=== PATIENT | male | born 1965 | race Caucasian/White ===

== ENCOUNTER 2021-10-25 20:30 | Outpatient (REF) | payer OTHER, SELFPAY ==
[2021-10-25 21:22] LABS: SARS PCR* Negative SARS-CoV-2 (Negative)
== END 2021-10-25 20:31 | disposition home or self-care (01) ==
LOC: NPINS 20:30
PROVIDERS: PCP Family Medicine; Visit Provider Podiatrist
DX: Z20.822 Contact with and (suspected) exposure to COVID-19 (principal)
CPT/HCPCS: 87635

== ENCOUNTER 2021-10-28 09:54 | Day surgery (SDC) | payer OTHER, SELFPAY ==
[2021-10-28 10:30] VITALS: BMI 49.1
[2021-10-28 10:36] VITALS: BP 113/75; PULSE 52; RESP 16; TEMP 36.7; O2SAT 97
[2021-10-28] MEDS: LACTATED RINGERS 1000 ML 1,000 ML 100 ML IV ×2 (12:45→16:17)
[2021-10-28] MEDS: fentaNYL 100 MCG/2 ML inj IVP (12:45)
[2021-10-28] MEDS: SODIUM CHLORIDE 0.9 % (FLUSH) 10 ML SYRINGE IVF (12:45)
[2021-10-28] MEDS: MIDAZOLAM HCL 1 MG/ML inj IVP (12:46)
--- NOTE | 2021-10-28 12:58 | P.NB_ITS ---
Nerve Block Nerve Block Time Seen by Provider: 12:20 Date Seen: 10/28/21 Type of block requested by surgeon for post-operative analgesia: adductor canal Side: right Time out performed: Yes Verification of patient name: Yes Verification of date of : Yes Site marking: site marked Name of person performing procedure: Jw Continuous monitoring Was continuous monitoring of O2 sat, B/P, director of cardiac cath lab, recorded every 15 minutes?: Yes Procedure Checklist: sterile prep, needles and gloves Ultrasound guided. Images saved: Yes Medications given in 5ml increments after negative aspiration: Ropivicaine %: 0.5 mL: 20 Needle gauge: 22 Patient tolerated procedure well: Yes Additional comments: Needle noted adjacent to nerve Block Charges Block Charge (with Pro Fee): Femoral Nerve Use of Ultrasound Machine for Block: Yes- US Guidance/pain block
--- NOTE | 2021-10-28 12:58 | P.NB_ITS ---
Nerve Block Nerve Block Time Seen by Provider: 12:20 Date Seen: 10/28/21 Type of block requested by surgeon for post-operative analgesia: popliteal Side: right Time out performed: Yes Verification of patient name: Yes Verification of date of : Yes Site marking: site marked Name of person performing procedure: Jw Continuous monitoring Was continuous monitoring of O2 sat, B/P, pvc monitor, recorded every 15 minutes?: Yes Procedure Checklist: sterile prep, needles and gloves Ultrasound guided. Images saved: Yes Medications given in 5ml increments after negative aspiration: Ropivicaine %: 0.5 mL: 20 Needle gauge: 20 Patient tolerated procedure well: Yes Additional comments: Needle noted adjacent to nerve Block Charges Block Charge (with Pro Fee): Sciatic Nerve Use of Ultrasound Machine for Block: Yes- US Guidance/pain block
--- NOTE | 2021-10-28 13:01 | SUR.PREOP ---
TIME?OUT:?1244 PT/RN/MDA?VERIFICATION?OF?SURGICAL?SITE,?PROCEDURE,?AND?CONSENT OBTAINED?PRIOR?TO?INVASIVE?PROCEDURE. all in agreement.
--- NOTE | 2021-10-28 14:29 | CRLHL7_ITS ---
For Patients: As a result of the Cures Act, medical imaging exams and procedure reports are released immediately into your electronic medical record. You may view this report before your referring provider. If you have questions, please contact your health care provider. Indication: SURGICAL ASSISTANCE WITH TENDON REPAIR Technique: Two fluoroscopic images of the right ankle. Fluoroscopic time 76.9 seconds. IMPRESSION: Fluoroscopic guidance for subtalar fusion. Dictated by Steven Mirza MD @ 10/29/2021 9:19:11 AM (Electronically Signed)
[2021-10-28 16:19] VITALS: BP 125/80; PULSE 53; RESP 16; TEMP 36.7; O2SAT 98
--- NOTE | 2021-10-28 16:24 | P.GSOP_ITS ---
Operative Note Date of procedure: 10/28/21 Type of Procedure: 1. Subtalar joint fusion right 2. Lateral Ankle stabilization right Procedure Description: After discussing the risks and benefits of the procedure, the patient signed informed consent.? The operative site was marked and the patient was brought to the operating room and placed on the operating table in supine position.? Preoperative popliteal adductor block been performed by Anesthesia. Care was taken to pad the patient's pressure points.?? The patient was then [intubated/given sedation] by anesthesia.?? The operative site was then prepped and draped in the usual sterile fashion.? A time-out was then performed. ? Linear incision was made starting proximal to lateral malleolus and coursing to the 4th metatarsal base. Incision was carried down through skin subcutaneous tissues. This large lipoma overlying the sinus tarsi lateral ankle was excised utilizing blunt dissection. Bleeding vessels were cauterized. Next the sinus tarsi fat plug was excised. The peroneal tendon sheath was carefully opened with a tenotomy scissors and the tendons explored. They were found to be in excellent health. Subtalar joint was identified and large effusion drained. Interosseous ligaments were significantly atrophied. One large Steinmann pin was placed in the lateral talus and 1 was placed in the calcaneus and joint blacktop spreader placed and the joint distracted. There was absolutely no cartilage wit hin the joint and in the posterior facet or middle facet. Combination of a curette, resurfacing bur and osteotomes were used to debride the joint down to healthy bleeding subchondral bone. We then made multiple drill holes throughout the fusion site and then fish-scaled the joint with an osteotome. We thoroughly irrigated with normal sterile saline. Augment bone graft was mixed with bone putty and placed in 3 of the defects left by cystic areas. Next a guide pin was placed into the plantar posterior calcaneus and driven across the fusion site into the talus. Lateral and anterior ankle images confirmed excellent position. Second guidepin was placed plantar and parallel to the 1st angling slightly more medial. 6.5 mm cannulated headless screws were then placed using standard technique. Excellent compression noted across the fusion site. Screw position was checked with C-arm and found to be optimal. There were a couple small gaps anteriorly at the fusion site and these were packed with bone graft. There is still some grinding to the anterior lateral ankle joint. Blunt dissection into the ankle joint revealed spurred area off the talus and fibula. These were removed with a rongeur. Once this was done normal range of motion without grinding was noted. Guidepin was placed in the lateral calcaneus and a 4.25 mm SwiveLock anchor with FiberTape placed. Guide pin and drill hole was then made in the distal fibula and tapped. With the foot held in neutral position the FiberTape was tensioned and the 3.5 mm SwiveLock anchor was placed in the fibula recreating the channing caneal fibular ligament. Anterior talofibular ligament was repaired primarily with 2-0 Vicryl. Subcutaneous tissues reapproximated with 3-0 Vicryl and skin closed with 4-0 Prolene. Posterior incision on the heel was closed with 3-0 nylon oral. Jump start topical dressing was applied to the incisions. Sterile dressings were then applied. Due to his size I placed him in a cam boot for additional protection versus a splint he could easily break stepping down. ? The patient was then woken and transported to the recovery area in stable condition. ? The patient tolerated the procedure well. He will be discharged per Anesthesia. Written and verbal postop instructions given. He is given oxycodone and Vistaril for pain. He has remained nonweightbearing to right lower extremity. His follow-up appointment in 2 days. Implants: Arthrex 6.5 mm headless screws x2, Arthrex internal brace x1 Anesthesia: MAC and regional Surgeon: Jonny Ramírez DPM Estimated blood loss (mL): 10 Condition: stable Disposition: same day
--- NOTE | 2021-10-28 16:25 | W.ANESCHARGE ---
Anesthesia Charges Start Date/Time Anesthesia Start Date: 10/28/21 Anesthesia Start Time: 13:37 Stop Date/Time Anesthesia Stop Date: 10/28/21 Anesthesia Stop Time: 16:22 Summary Emergency: No
--- NOTE | 2021-10-28 16:26 | W.ANESCHARGE ---
Anesthesia Charges Start Date/Time Anesthesia Start Date: 10/28/21 Anesthesia Start Time: 13:37 Stop Date/Time Anesthesia Stop Date: 10/28/21 Anesthesia Stop Time: 16:22 Summary Emergency: No
[2021-10-28 16:33] VITALS: BP 113/62; PULSE 50; RESP 16; O2SAT 96
[2021-10-28] MEDS: OxyCODONE/APAP 5-325 TABLET PO (16:37)
[2021-10-28 16:45] VITALS: BP 124/97; PULSE 52; RESP 16; O2SAT 98
--- NOTE | 2021-10-28 16:51 | SUR.PHASEII ---
VORB for home use: Aspirin 81mg (2tabs) daily to start tomorrow, Sunday 10/29. Take for [address] Ramírez. Maura Cisneros RN. Put on patient's home instruction sheet.
== END 2021-10-28 17:12 | disposition home or self-care (01) ==
PROVIDERS: PCP Family Medicine; Visit Provider Podiatrist
PROC: (CPT 27675; principal; 2021-10-28 11:15)
PROC: (CPT 28725; 2021-10-28 11:15)
DX: M19.071 Primary osteoarthritis, right ankle and foot (principal); M25.571 Pain in right ankle and joints of right foot; M67.88 Other specified disorders of synovium and tendon, other site
CPT/HCPCS: 28725; 27659; 27695; 1480; 64445; 64447; 73620; 76000; 76942; 97116; 97161; A4580; A9270; C1713; J2250; J2405; J2704; J2795; J3010; J7120

== ENCOUNTER 2021-11-02 15:51 | Inpatient (IN) | payer OTHER, SELFPAY ==
[2021-11-02 16:10] VITALS: BP 114/61; PULSE 92; RESP 24; TEMP 39.3; O2SAT 97; BMI 54.0
--- NOTE | 2021-11-02 16:23 | CRLHL7_ITS ---
For Patients: As a result of the Cures Act, medical imaging exams and procedure reports are released immediately into your electronic medical record. You may view this report before your referring provider. If you have questions, please contact your health care provider. Indication: Postop infection. Technique: Three views of the right ankle. Comparison: Fluoroscopic images of the right foot dated 10/28/2021, right ankle radiographs dated 11/01/2020. Findings/Impression: Two talocalcaneal screws are present, no definite evidence of hardware loosening. Significant circumferential soft tissue swelling about the ankle, with moderate-sized ankle joint effusion. Dictated by Oscar Pedro MD @ 11/02/2021 6:04:17 PM (Electronically Signed)
[2021-11-02] MEDS: MORPHINE 4 MG/ML INJ IVP (17:15)
[2021-11-02] MEDS: ONDANSETRON 2 MG/ML inj 4 MG IVP ×2 (17:15→20:44)
[2021-11-02] MEDS: 0.9 % SODIUM CHLORIDE 1000 ml 1,000 ML IV ×2 (17:16→18:40)
[2021-11-02 17:17] LABS: Basophils Absolute Auto 0.04 K/uL (0.00-0.30); Basophils Percent Auto 0.5 % (0.0-3.0); Eosinophils Absolute Auto 0.17 K/uL (0.00-0.50); Eosinophils Percent Auto 2.2 % (0.0-7.0); Hematocrit 36.9 % (37.0-53.0); Hemoglobin* 12.2 gm/dL (13.5-17.5); Immature Granulocytes Abs Auto 0.01 K/uL (0.00-0.30); Mean Corpuscular HGB Conc 33 gm/dL (32-36); Mean Corpuscular Hemoglobin 29 pg (26-34); Mean Corpuscular Volume 87 fL (80-100); Monocytes Percent Auto 10.4 % (0.0-11.0); Neutrophils Percent Auto 79.8 % (42.0-72.0); Platelet Count* 144 K/uL (140-440); RDW Coefficient of Variation % 13.3 % (11.5-15.5); Red Blood Count 4.26 m/uL (4.30-5.90); White Blood Count* 7.59 K/uL (4.50-11.00)
[2021-11-02 17:24] LABS: Slide Review Reflex No
[2021-11-02 17:30] LABS: Chloride* 89 mmol/L (96-114); Sodium* 129 mmol/L (135-149)
[2021-11-02 17:31] LABS: Potassium* 4.4 mmol/L (3.6-5.1)
[2021-11-02 17:33] LABS: Albumin* 3.7 g/dL (3.3-5.0); Carbon Dioxide* 32 mmol/L (20-32); Estimated Glomerular Filt Rate 89 ml/min
[2021-11-02 17:34] LABS: Blood Urea Nitrogen* 23 mg/dL (7-30); Calcium* 8.3 mg/dL (8.4-10.6); Glucose* 105 mg/dL (60-115)
--- NOTE | 2021-11-02 17:35 | ED.GENADULT ---
HPI - General Adult General Date Seen: 11/02/21 Chief complaint: Fever Stated complaint: Ankle Infection Time Seen by Provider: 11/02/21 16:04 Source: patient and family History of Present Illness HPI narrative: Patient is a 56-year-old male who underwent ankle fusion surgery with Dr. Ramírez on October 28. He looked well at his postop visit the next day, but over the past couple of days he started to feel worse. He has had increasing pain, has noted some redness, and today has had chills as well as a fever up to 103 at home. He has not had chest pain or shortness of breath. He does have pain in his shoulders and in his back, which sounds like it may be more chronic. He does have nerve stimulators in 2 places in his back and is on chronic oxycodone for back pain. He denies urinary symptoms in terms of dysuria or frequency or urgency, but his again other does say that his urine has been concentrated and he has been having decreased urine output. He was evaluated by Dr. Ramírez today and was sent here for IV antibiotics. He has had significant nausea but no vomiting. Has not had diarrhea. Describes the pain in his right ankle as severe, also describes the pain in his shoulders and back as severe. Pain is constant. Nonradiating. Related Data Home Medications Medication Instructions Recorded Confirmed albuterol 90 mcg/actuation aerosol mcg inhalation PRN 10/25/21 inhaler albuterol sulfate 2.5 mg/3 mL 1.25 mg inhalation Q4H PRN 10/25/21 10/25/21 (0.083 %) solution for nebulization allopurinol 300 mg tablet 300 mg PO DAILY 10/25/21 10/28/21 amlodipine 10 mg tablet 10 mg PO DAILY 10/25/21 10/28/21 buprenorphine 5 mcg/hour weekly 1 patch transdermal Q7D 10/25/21 10/25/21 transdermal patch (Butrans) buspirone 5 mg tablet 5 mg PO BID 10/25/21 10/25/21 diclofenac sodium 75 mg 75 mg PO BID 10/25/21 10/28/21 tablet,delayed release duloxetine 60 mg capsule,delayed 120 mg PO DAILY 10/25/21 10/28/21 release (Cymbalta) etanercept 50 mg/mL (1 mL) 50 mg subcut QWEEK 10/25/21 10/25/21 subcutaneous pen injector (Enbrel SureClick) folic acid 1 mg tablet 1 mg PO DAILY 10/25/21 10/28/21 gabapentin 100 mg capsule mg TID 10/25/21 hydrocortisone 1 % topical cream 1 applic topical BID PRN 10/25/21 10/25/21 (Ala-Giacomo) hydroxyzine pamoate 25 mg capsule 25 - 50 mg PO HS 10/25/21 10/25/21 ipratropium 0.5 mg-albuterol 3 mg 3 ml inhalation Q6H PRN 10/25/21 10/25/21 (2.5 mg base)/3 mL nebulization soln lisinopril 20 mg tablet mg DAILY 10/25/21 lisinopril 20 tab DAILY 10/25/21 mg-hydrochlorothiazide 25 mg tablet methotrexate sodium 2.5 mg tablet mg 10/25/21 metoprolol succinate 50 mg 25 mg PO DAILY 10/25/21 10/28/21 tablet,extended release 24 hr montelukast 10 mg tablet 10 mg PO DAILY 10/25/21 10/28/21 (Singulair) ondansetron HCl 4 mg tablet 4 mg PO Q8H PRN 10/25/21 10/25/21 Allergies Allergy/AdvReac Type Severity Reaction Status Date / Time Penicillin Allergy Mild Rash Uncoded 10/24/21 15:34 Review of Systems Status of ROS: Reports: 10 or more systems reviewed and unremarkable except as noted in History and below [facility] Medical History Asthma Depression Hypertension Mild asthma with acute exacerbation Morbid obesity SIDDHARTH (obstructive sleep apnea) Osteoarthritis Rheumatoid arthritis Surgical History History of vasectomy S/P insertion of spinal cord stimulator S/P right knee arthroscopy Social History Smoking Status: Never smoker How often do you have a drink containing alcohol: 2-3 times a week How many standard drinks containing alcohol do you have on a typical day: 1 or 2 AUDIT-C Alcohol total score: 3 Non-prescribed substance use: denies use Caffeine: Yes (soda) Exam Narrative: Exam Narrative: Vital signs as noted the low In general, an alert, fatigued looking male. Significantly overweight. Head: Normocephalic, atraumatic. Eyes: Pupils are equal reactive. Extraocular movements are full. Conjunctivae are normal. ENT: Mucous membranes are slightly dry. Neck: Supple without lymphadenopathy. Heart: Regular rate and rhythm. No murmur or rub. Lungs: Clear bilaterally. No increased work of breathing, crackles or wheezes. No CVA tenderness. Abdomen: Soft and nontender. Exam limited by body habitus. Extremities: Left lower extremity unremarkable. No significant edema, no calf tenderness. On the right, surgical site is significantly erythematous, scant purulent drainage is noted on the 4 x 4 which I removed. I sent this for wound culture. There is no erythema extending up the calf. There is no significant edema. No warmth. He does have some erythema noted laterally on the right upper extremity of uncertain significance. There is no associated rash. Upper extremity pulses are intact. Neurologic: Patient is alert and oriented to person and place. Speech is fluent. Face is symmetric. Moves all extremities equally. Affect: Normal. Skin: Warm and dry. Well perfused. Const: Vital Signs, click to edit/add: Vital Signs - 24 hr 11/02/21 16:10 11/02/21 18:00 Temperature 102.8 F H Pulse Rate [Pulse Oximeter] 92 94 Respiratory Rate 24 14 Blood Pressure [Le ft Upper Arm] 114/61 105/55 L Pulse Oximetry 97 95 Oxygen Delivery Me thod Room Air Documenting provider has reviewed patient's vital signs: yes Course Course Hospital Course: An IV is established here, patient is given morphine as well as Zofran and a L of normal saline. He is febrile here, but not tachycardic or hypotensive. I am awaiting other labs before assessing choice of antibiotic. He does note a penicillin allergy which he says gave him a red square on his abdomen. Patient's labs are notable for a normal white blood cell count of 7.59. Hemoglobin is 12.2. Diff shows a slight left shift with 79.8% neutrophils. Platelet count is normal. Sodium is a little low at 129. Potassium is normal. Enriquez electrolytes unremarkable. Creatinine is normal. LFTs notable for an elevated bilirubin of 2.7, direct of 1.0. AST is elevated at 53, ALT of 45. Alk-phos is elevated at 263. Significance of LFT findings is unknown at this time. Patient complains of nausea but does not have other abdominal complaints, does not have abdominal tenderness. In the setting of clear cellulitis, I do not think his fever is related to a diagnosis such as cholecystitis or cholangitis. CRP is elevated 27.7, but lactate is normal. I did x-rays of the right ankle which by my review show postoperative hardware, joint effusion. Final radiology report is similar. I did touch base with Dr. Ramírez, who requested admission for IV antibiotics, as he feels he may need to take him back to the OR for a washout. Patient does not at this time have criteria to suggest sepsis, he has not been tachycardic or hypotensive, white blood cell count and lactate are normal. However, he did have a little bit of purulent drainage, he does take methotrexate for his rheumatoid arthritis. He does meet criteria for MRSA coverage. I have given him vancomycin as well as cefepime 2 g. Wound culture and blood cultures are pending. I spoke with the hospitalist about admission for further IV antibiotics. Reevaluation(s) Reevaluation #1: Patient is feeling reasonably well, request additional medication for pain. Have ordered an additional 4 mg of morphine as well as an additional L of fluid. He is comfortable with admission. No further questions. Vital Signs Vital signs: Initial Vital Signs Temperature 102.8 F H 11/02/21 16:10 Temperature Source Oral 11/02/21 16:10 Pulse Rate 92 11/02/21 16:10 Respiratory Rate 24 11/02/21 16:10 Blood Pressure 114/61 11/02/21 16:10 Blood Pressure Mean 78 11/02/21 16:10 Blood Pressure Position Supine 11/02/21 16:10 Pulse Oximetry 97 11/02/21 16:10 Oxygen Delivery Method 11/02/21 16:10 Vital Signs Temperature 102.8 F H 11/02/21 16:10 Pulse Rate 92 11/02/21 16:10 Respiratory Rate 24 11/02/21 16:10 Blood Pressure 114/61 11/02/21 16:10 Pulse Oximetry 97 11/02/21 16:10 Oxygen Delivery Method 11/02/21 16:10 Temperature 102.8 F H 11/02/21 16:10 Pulse Rate 94 11/02/21 18:00 Respiratory Rate 14 11/02/21 18:00 Blood Pressure 105/55 L 11/02/21 18:00 Pulse Oximetry 95 11/02/21 18:00 Oxygen Delivery Method 11/02/21 16:10 Medical Decision Making Lab Data Labs: Lab Results 11/02/21 11/02/21 11/02/21 Range/Units 14:30 16:59 16:59 WBC 7.59 (4.50-11.00) K/uL RBC 4.26 L (4.30-5.90) m/uL Hgb 12.2 L (13.5-17.5) gm/dL Hct 36.9 L (37.0-53.0) % MCV 87 (80-100) fL MCH 29 (26-34) pg MCHC 33 (32-36) gm/dL RDW Coeff of Soniya 13.3 (11.5-15.5) % Plt Count 144 (140-440) K/uL Neut % (Auto) 79.8 H (42.0-72.0) % Lymph % (Auto) 7.0 L (20-44) % [place] % (Auto) 10.4 (0.0-11.0) % Eos % (Auto) 2.2 (0.0-7.0) % Baso % (Auto) 0.5 (0.0-3.0) % Neut # (Auto) 6.10 (1.7-7.0) K/uL Lymph # (Auto) 0.50 L (0.90-2.90) K/uL [place] # (Auto) 0.80 (0.00-0.90) K/UL Eos # (Auto) 0.17 (0.00-0.50) K/uL Baso # (Auto) 0.04 (0.00-0.30) K/uL Abs Immat Gran (auto) 0.01 (0.00-0.30) K/uL Sodium 129 L (135-149) mmol/L Potassium 4.4 (3.6-5.1) mmol/L Chloride 89 L (96-114) mmol/L Carbon Dioxide 32 (20-32) mmol/L BUN 23 (7-30) mg/dL Creatinine 1.0 (0.5-1.5) mg/dL Estimated Creat Clear 81.70 Estimated GFR 89 ml/min Glucose 105 (60-115) mg/dL Lactate (0.5-1.9) mmol/L Calcium 8.3 L (8.4-10.6) mg/dL Total Bilirubin (0.1-1.5) mg/dL Direct Bilirubin (0.0-0.5) mg/dL AST (12-35) U/L ALT (4-50) U/L Alkaline Phosphatase (40-150) U/L C-Reactive Protein 27.7 H (0.5-1.0) mg/dL Total Protein (6.0-8.3) g/dL Albumin (3.3-5.0) g/dL SARS-CoV-2 (PCR) Negative SARS-CoV-2 (Negative) 11/02/21 11/02/21 Range/Units 16:59 16:59 WBC (4.50-11.00) K/uL RBC (4.30-5.90) m/uL Hgb (13.5-17.5) gm/dL Hct (37.0-53.0) % MCV (80-100) fL MCH (26-34) pg MCHC (32-36) gm/dL RDW Coeff of Soniya (11.5-15.5) % Plt Count (140-440) K/uL Neut % (Auto) (42.0-72.0) % Lymph % (Auto) (20-44) % [place] % (Auto) (0.0-11.0) % Eos % (Auto) (0.0-7.0) % Baso % (Auto) (0.0-3.0) % Neut # (Auto) (1.7-7.0) K/uL Lymph # (Auto) (0.90-2.90) K/uL [place] # (Auto) (0.00-0.90) K/UL Eos # (Auto) (0.00-0.50) K/uL Baso # (Auto) (0.00-0.30) K/uL Abs Immat Gran (auto) (0.00-0.30) K/uL Sodium (135-149) mmol/L Potassium (3.6-5.1) mmol/L Chloride (96-114) mmol/L Carbon Dioxide (20-32) mmol/L BUN (7-30) mg/dL Creatinine (0.5-1.5) mg/dL Estimated Creat Clear Estimated GFR ml/min Glucose (60-115) mg/dL Lactate 1.0 (0.5-1.9) mmol/L Calcium (8.4-10.6) mg/dL Total Bilirubin 2.7 H (0.1-1.5) mg/dL Direct Bilirubin 1.0 H (0.0-0.5) mg/dL AST 53 H (12-35) U/L ALT 45 (4-50) U/L Alkaline Phosphatase 263 H (40-150) U/L C-Reactive Protein (0.5-1.0) mg/dL Total Protein 6.7 (6.0-8.3) g/dL Albumin 3.7 (3.3-5.0) g/dL SARS-CoV-2 (PCR) (Negative)
[2021-11-02 17:36] LABS: Aspartate Amino Transferase* 53 U/L (12-35); Bilirubin Total* 2.7 mg/dL (0.1-1.5); Total Protein* 6.7 g/dL (6.0-8.3)
[2021-11-02 17:37] LABS: Alanine Aminotransferase* 45 U/L (4-50); Alkaline Phosphatase* 263 U/L (40-150)
[2021-11-02 18:00] VITALS: BP 105/55; PULSE 94; RESP 14; O2SAT 95
[2021-11-02 18:10] LABS: C Reactive Protein* 27.7 mg/dL (0.5-1.0)
[2021-11-02 18:34] LABS: SARS PCR* Negative SARS-CoV-2 (Negative)
[2021-11-02 19:00] VITALS: BP 141/101; PULSE 100; RESP 20; TEMP 38.7; O2SAT 99; BMI 54.3
[2021-11-02] MEDS: MORPHINE 4 MG/ML INJ IM (19:24)
--- NOTE | 2021-11-02 19:43 | PM.IMHP1 ---
Hospitalist- H&P: HPI History of Present Illness Date Seen: 11/02/21 Chief complaint: Ankle Infection Narrative: Esau Prieto is a 56 year old male who presents with fever and right foot and ankle pain and swelling 5 days after a subtalar fusion of the right ankle. Pt has been having worsening symptoms over the past few days and developed fever of 103 today. Pt presented to the emergency department today where X ray of the right ankle showed 2 talocalcaneal screws with soft tissue swelling and a moderate effusion. WBC was normal but CRP was elevated at 27.7. Pt has no other symptoms, particularly no abdominal symptoms althought his Bilirubin is 2.7 with an alk phos of 263 and an AST of 53. Pt also was noted to have a sodium of 129. Podiatry was contacted and asked that the patient be admitted for IV Vancomycin and Cefepime with likely return to the OR in the am. Pt has a history of Rheumatoid Arthritis but has not had methotrexate or DMARDs for 6 months. Review of Systems Status of ROS: Reports: 10 or more systems reviewed and unremarkable except as noted in History and below [facility] Medical History (Updated 11/02/21 @ 20:03 by Deric Camara MD) Abnormal LFTs Asthma Asthma Depression Depression GERD (gastroesophageal reflux disease) Gout Hypertension Hypertension Hyponatremia Mild asthma with acute exacerbation Morbid obesity SIDDHARTH (obstructive sleep apnea) SIDDHARTH (obstructive sleep apnea) Osteoarthritis Post op infection Rheumatoid aortitis Rheumatoid arthritis Surgical History History of vasectomy S/P insertion of spinal cord stimulator S/P right knee arthroscopy Social History Smoking Status: Never smoker How often do you have a drink containing alcohol: 2-3 times a week How many standard drinks containing alcohol do you have on a typical day: 1 or 2 AUDIT-C Alcohol total score: 3 Non-prescribed substance use: denies use Caffeine: Yes (soda) Meds Home Medications and Allergies Home Medications Medication Instructions Recorded Confirmed Type albuterol 90 mcg/actuation aerosol mcg inhalation PRN 10/25/21 History inhaler albuterol sulfate 2.5 mg/3 mL 1.25 mg inhalation Q4H PRN 10/25/21 10/25/21 History (0.083 %) solution for nebulization allopurinol 300 mg tablet 300 mg PO DAILY 10/25/21 10/28/21 History amlodipine 10 mg tablet 10 mg PO DAILY 10/25/21 10/28/21 History buprenorphine 5 mcg/hour weekly 1 patch transdermal Q7D 10/25/21 10/25/21 History transdermal patch (Butrans) buspirone 5 mg tablet 5 mg PO BID 10/25/21 10/25/21 History diclofenac sodium 75 mg 75 mg PO BID 10/25/21 10/28/21 History tablet,delayed release duloxetine 60 mg capsule,delayed 120 mg PO DAILY 10/25/21 10/28/21 History release (Cymbalta) etanercept 50 mg/mL (1 mL) 50 mg subcut QWEEK 10/25/21 10/25/21 History subcutaneous pen injector (Enbrel SureClick) folic acid 1 mg tablet 1 mg PO DAILY 10/25/21 10/28/21 History gabapentin 100 mg capsule mg TID 10/25/21 History hydrocortisone 1 % topical cream 1 applic topical BID PRN 10/25/21 10/25/21 History (Ala-Giacomo) hydroxyzine pamoate 25 mg capsule 25 - 50 mg PO HS 10/25/21 10/25/21 History ipratropium 0.5 mg-albuterol 3 mg 3 ml inhalation Q6H PRN 10/25/21 10/25/21 History (2.5 mg base)/3 mL nebulization soln lisinopril 20 mg tablet mg DAILY 10/25/21 History lisinopril 20 tab DAILY 10/25/21 History mg-hydrochlorothiazide 25 mg tablet methotrexate sodium 2.5 mg tablet mg 10/25/21 History metoprolol succinate 50 mg 25 mg PO DAILY 10/25/21 10/28/21 History tablet,extended release 24 hr montelukast 10 mg tablet 10 mg PO DAILY 10/25/21 10/28/21 History (Singulair) ondansetron HCl 4 mg tablet 4 mg PO Q8H PRN 10/25/21 10/25/21 History Allergies Allergy/AdvReac Type Severity Reaction Status Date / Time Penicillin Allergy Mild Rash Uncoded 10/24/21 15:34 Exam Narrative: Exam Narrative: EXAM GENERAL: Patient appears mildly obese. EYES: No scleral icterus. THYROID: no thyroid nodules or thyromegaly. LYMPH: No supraclavicular or cervical lymphadenopathy. SKIN: Visible skin seen during exam normal or with benign process only. EXT: Right foot ankle are erythematous. Bloody drainage coming from the incision site. The erythema did ins just above the ankle. Blood flow distally noted. HEART: Regular rate and rhythm with no murmurs, rubs, or gallops. LUNGS: Clear to auscultation bilaterally with no crackles or wheezes. ABD: Soft, non tender, non distended. PSYCH: Good eye contact, speech is not pressured. Neurologic cranial nerves 2-12 grossly intact no focal defects. Const: Vital Signs, click to edit/add: Vital Signs - 24 hr 11/02/21 16:10 11/02/21 18:00 Temperature 102.8 F H Pulse Rate [Pulse Oximeter] 92 94 Respiratory Rate 24 14 Blood Pressure [Le ft Upper Arm] 114/61 105/55 L Pulse Oximetry 97 95 Oxygen Delivery Me thod Room Air Hospitalist - H&P: Result Labs Labs: Short CBC 11/02/21 Range/Units 16:59 WBC 7.59 (4.50-11.00) K/uL Hgb 12.2 L (13.5-17.5) gm/dL Hct 36.9 L (37.0-53.0) % Plt Count 144 (140-440) K/uL BMP 11/02/21 16:59 Sodium 129 L Potassium 4.4 Chloride 89 L Carbon Dioxide 32 BUN 23 Creatinine 1.0 Glucose 105 Calcium 8.3 L Liver Function 11/02/21 Range/Units 16:59 Total Bilirubin 2.7 H (0.1-1.5) mg/dL Direct Bilirubin 1.0 H (0.0-0.5) mg/dL AST 53 H (12-35) U/L ALT 45 (4-50) U/L Alkaline Phosphatase 263 H (40-150) U/L Albumin 3.7 (3.3-5.0) g/dL Assessment and Plan Assessment and plan (1) Post op infection: Status: Acute Assessment and Plan: Pt has been cultured and is up to date on his Tdap. He will be kept NPO tonight with likely surgery in am. (2) Abnormal LFTs: Status: Acute Assessment and Plan: Could be GERBER with Gilbert's. Will repeat CMP in am with possible ultrasound if results remain abnormal. Will watch for any signs of abd symptoms which pt currently has none. (3) Hyponatremia: Status: Acute Assessment and Plan: Fluid Restrict with am Na (4) Asthma: Status: Chronic Assessment and Plan: Continue outpt mgmt (5) Depression: Status: Chronic Assessment and Plan: Continue outpt mgmt (6) SIDDHARTH (obstructive sleep apnea): Status: Chronic Assessment and Plan: CPAP at home settings (7) Rheumatoid aortitis: Status: Chronic Assessment and Plan: No methotrexate or DMARD for more than 6 months. Managing symptomatically (8) Hypertension: Status: Chronic Assessment and Plan: Continue outpt mgmt (9) GERD (gastroesophageal reflux disease): Status: Chronic Assessment and Plan: Continue outpt mgmt (10) Gout: Status: Chronic Assessment and Plan: Continue Allopurinol Plan Full code
[2021-11-02] MEDS: CEFEPIME HCL 2 GM in 0.9 % SODIUM CHLORIDE Mini-bag 100 ML IVPB (20:29)
--- NOTE | 2021-11-02 20:31 | P.PODCN_ITS ---
HPI - Podiatry Data of Consult Date Seen: 11/02/21 Consult date: 11/02/21 Requesting physician: Deric Camara MD Primary care provider: Olga Hicthcock MD Consult Narrative Reason for consult: Post op infection right foot Narrative: Esau Prieto is a 56 year old male was admitted this evening for right foot po stop infection. Patient states that over the last 2 days had increasing pain to the right ankle at the area of the surgery. He states that earlier today he started to develop a fever and chills. He states temperature went up to 103?. He then contacted me and I advised him to go to the emergency department for further evaluation for possible infection and possible admission for antibiotics. He was seen in the emergency department with a significant infection but without signs of sepsis. Cellulitis is significant for admission to the hospital. He is seen bedside this evening. States pain is increased from his clinic appointment Thursday. cc:: CC: Deric Camara MD Review of Systems Status of ROS: Reports: 10 or more systems reviewed and unremarkable except as noted in History and below Narrative: His back pain is at its baseline but he is having increased abdominal pain that he feels is muscular. Const: Reports: fever and chills GI: Reports: abdominal pain Musculo: Reports: back pain, extremity pain and extremity swelling Integ/Breast: Reports: redness PFSH PFSH Medical History (Updated 11/02/21 @ 20:42 by Jonny Ramírez DPM) Abnormal LFTs Asthma Asthma Depression Depression GERD (gastroesophageal reflux disease) Gout Hypertension Hypertension Hyponatremia Mild asthma with acute exacerbation Morbid obesity SIDDHARTH (obstructive sleep apnea) SIDDHARTH (obstructive sleep apnea) Osteoarthritis Post op infection Rheumatoid aortitis Rheumatoid arthritis Surgical History History of vasectomy S/P insertion of spinal cord stimulator S/P right knee arthroscopy Social History Smoking Status: Never smoker How often do you have a drink containing alcohol: 2-3 times a week How many standard drinks containing alcohol do you have on a typical day: 1 or 2 AUDIT-C Alcohol total score: 3 Non-prescribed substance use: denies use Caffeine: Yes (soda) Exam Const: Vital Signs, click to edit/add: Vital Signs - 24 hr 11/02/21 16:10 11/02/21 18:00 Temperature 102.8 F H Pulse Rate [Pulse Oximeter] 92 94 Respiratory Rate 24 14 Blood Pressure [Le ft Upper Arm] 114/61 105/55 L Pulse Oximetry 97 95 Oxygen Delivery Me thod Room Air Documenting provider has reviewed patient's vital signs: yes Common normals: oriented x3 and alert General appearance: cooperative and in d istress mild Extremity: Other: Right lower extremity exam Vascular: Nonpalpable pedal pulses due to severe edema. Normal capillary fill time all digits. Neuro: Sensate to light touch throughout. Derm: Severe edema to the right lower extremity. Significant erythema along the incision extending out over the lateral ankle and extending slightly up the lateral leg. There is mild drainage from the incision distally. There is a fluctuant area at the incision consistent with abscess or hematoma. After removal of 1 suture and opening of the wound significant amount of bloody purulent drainage consistent with hematoma expressed. No significant pain to the anterior or medial ankle joint. No pain with range of motion of the ankle joint. Musculoskeletal: No gross deformity. No change in position of the fusion site. limited range of motion due to pain in the lower extremity. Neuro: Common normals: oriented x3 Sensorium/orientation: alert Assessment and Plan Assessment and plan (1) Post op infection: Status: Acute (2) Hematoma of right ankle: Status: Acute Plan Patient is on cefepime and vancomycin. Will continue until sensitivities available. Sterile dressing applied. X-rays show hardware in the appropriate position. No gas in the tissue. I will leave him out of the splint this evening for comfort and then place him in a new splint tomorrow. We will keep him NPO this evening for possible surgical intervention tomorrow. Based on exam I may aspirate the ankle joint and if positive for purulence he would need surgery. Currently the amount of purulence from the incision was quite minimal the right appears to be cellulitis with hematoma. Procedure: The distal suture was removed. The incision gently opened. Contents of the hematoma were expressed. Deep space culture was obtained and sent for sensitivities. The hematoma pocket was then irrigated with diluted Betadine and sterile saline solution. Proximally 300 mL was used to irrigate the hematoma cavity. No active bleeding noted. Bolster compressive dressing was applied. Nail Debridement Qualifies If: Qualifiers If:: A patient qualifies for nail debridement if they have: 1 class A finding (Q7) 2 class B findings (Q8) OR 1 class B & 2 class C findings in addition to a primary condition (Q9)
[2021-11-02] MEDS: DULOXETINE 30 MG CAPSULE DR PO (20:44)
[2021-11-02] MEDS: BUSPIRONE 10 MG TABLET PO (20:44)
[2021-11-02] MEDS: OXYCODONE 5 MG TABLET PO (21:55)
[2021-11-02 22:00] VITALS: TEMP 38.1
[2021-11-02] MEDS: polyethylene glycoL 3350 17 GM PACK PO (22:33)
[2021-11-02] MEDS: OXYCODONE 5 MG TABLET 10 MG PO (22:35)
[2021-11-02] MEDS: ACETAMINOPHEN 325 MG TABLET 650 MG PO (22:35)
[2021-11-02 23:00] VITALS: BP 129/68; PULSE 100; PULSE 90; RESP 18; RESP 20; TEMP 38.6; O2SAT 91
--- NOTE | 2021-11-02 23:07 | PC.NURSE ---
Shift [id number]- Patient arrives to unit at approximately 1930. With difficulty and pain, he is able to pivot transfer on right leg- gait belt, A/-2. He is painful to right ankle/leg, shoulders, fingers, abdomen. He rates ankle/leg pain 7/10 and as the worst pain of all painful sites. He is given PRN oxycodone without much relief. MD updated- see new orders. MD also updated due to no bowel movement since surgery and difficulty to void- see orders. He describes pain in lower abdomen all the way across. Bowel sounds are active. MD Darrell to bedside after arrival for bedside procedure and dressing. Patient is also given zofran for nausea.
[2021-11-03] VITALS (7 sets, daily range): BP systolic 105–138; BP diastolic 57–90; PULSE 75–84; RESP 18–20; TEMP 36.7–37.1; O2SAT 95–97
[2021-11-03] MEDS: OXYCODONE 5 MG TABLET 10 MG PO ×4 (02:14→16:22)
--- NOTE | 2021-11-03 05:17 | PC.NURSE ---
Alert and oriented x4. Vitals stable. Tmax overnight 101.4 but currently afebrile. Right ankle pain managed with Oxycodone; did not want to take any pain medications initially because of high tolerance. PVR this shift 50cc sraight cathed with sterile technique by the administrative underwriter. Family present for support. Maintained NPO from overnight. Will continue to monitor and assess
--- NOTE | 2021-11-03 08:21 | W.PM.PODPN ---
Podiatry-PN: Milagros Subjective Date Seen: 11/03/21 Interval history: Patient seen bedside this morning for continued evaluation of his right ankle postop infection. States that his fevers seem to break last evening and is feeling some better. He did have difficulty sleeping and continues with chronic pain issues. Progress Note: A&P Assessment and plan (1) Hematoma of right ankle: Status: Acute (2) Post op infection: Status: Acute Plan Will continue IV cefepime and vancomycin he until sensitivities are completed fusion wound cultures are still pending. Discussed with patient that he is likely going to need couple more days of IV antibiotics fully catch up with infection. He is afebrile vital signs stable today which is an improvement over last evening. The wound does not require further irrigation. Sterile bolster dressing applied. He is comfortable in bed without a splint and he is adept at maintaining nonweightbearing with bathroom privileges. In light of this we will wait on splinting or use of the cam boot until edema is improved. Exam Const: Vital Signs, click to edit/add: Vital Signs - 24 hr 11/02/21 16:10 11/02/21 18:00 11/02/21 19:00 Temperature 102.8 F H 101.7 F H Pulse Rate [Left P ulse Oximeter] 100 Pulse Rate [Pulse Oximeter] 92 94 Respiratory Rate 24 14 20 Blood Pressure [Le ft Arm] 141/101 H Blood Pressure [Le ft Upper Arm] 114/61 105/55 L Pulse Oximetry 97 95 99 Oxygen Delivery Me thod Room Air Nasal Cannula Oxygen Flow Rate 2 11/02/21 19:00 11/02/21 22:00 11/02/21 23:00 Temperature 100.6 F H Pulse Rate [Left P ulse Oximeter] 100 Pulse Rate [Pulse Oximeter] Respiratory Rate 18 Blood Pressure [Le ft Arm] Blood Pressure [Le ft Upper Arm] Pulse Oximetry Oxygen Delivery Me thod Nasal Cannula Oxygen Flow Rate 2 11/02/21 23:00 11/03/21 03:00 Temperature 101.4 F H 98.2 F Pulse Rate [Left P ulse Oximeter] 90 75 Pulse Rate [Pulse Oximeter] Respiratory Rate 20 20 Blood Pressure [Le ft Arm] 129/68 121/75 Blood Pressure [Le ft Upper Arm] Pulse Oximetry 91 95 Oxygen Delivery Me thod Room Air Room Air Oxygen Flow Rate Documenting provider has reviewed patient's vital signs: yes Common normals: no apparent distress and oriented x3 General appearance: cooperative Extremity: Other: Exam right lower extremity: Erythema is unchanged. Edema is slightly improved. Hematoma has not refilled foot. There is no purulence but some mild serosanguineous drainage from the incision. Improved pain with palpation to the anterior medial ankle joint. No pain with range of motion of the ankle joint. Neuro: Common normals: oriented x3 Podiatry-PN: Obj Labs Labs: Laboratory Results - last 24 hr 11/02/21 11/02/21 11/02/21 14:30 16:59 16:59 WBC 7.59 RBC 4.26 L Hgb 12.2 L Hct 36.9 L MCV 87 MCH 29 MCHC 33 RDW Coeff of Soniya 13.3 Plt Count 144 Neut % (Auto) 79.8 H Lymph % (Auto) 7.0 L [place] % (Auto) 10.4 Eos % (Auto) 2.2 Baso % (Auto) 0.5 Neut # (Auto) 6.10 Lymph # (Auto) 0.50 L [place] # (Auto) 0.80 Eos # (Auto) 0.17 Baso # (Auto) 0.04 Abs Immat Gran (auto) 0.01 Sodium 129 L Potassium 4.4 Chloride 89 L Carbon Dioxide 32 BUN 23 Creatinine 1.0 Estimated Creat Clear 81.70 Estimated GFR 89 Glucose 105 Lactate Calcium 8.3 L Total Bilirubin Direct Bilirubin AST ALT Alkaline Phosphatase C-Reactive Protein 27.7 H Total Protein Albumin SARS-CoV-2 (PCR) Negative SARS-CoV-2 11/02/21 11/02/21 16:59 16:59 WBC RBC Hgb Hct MCV MCH MCHC RDW Coeff of Soniya Plt Count Neut % (Auto) Lymph % (Auto) [place] % (Auto) Eos % (Auto) Baso % (Auto) Neut # (Auto) Lymph # (Auto) [place] # (Auto) Eos # (Auto) Baso # (Auto) Abs Immat Gran (auto) Sodium Potassium Chloride Carbon Dioxide BUN Creatinine Estimated Creat Clear Estimated GFR Glucose Lactate 1.0 Calcium Total Bilirubin 2.7 H Direct Bilirubin 1.0 H AST 53 H ALT 45 Alkaline Phosphatase 263 H C-Reactive Protein Total Protein 6.7 Albumin 3.7 SARS-CoV-2 (PCR)
[2021-11-03 08:25] LABS: Basophils Absolute Auto 0.02 K/uL (0.00-0.30); Basophils Percent Auto 0.3 % (0.0-3.0); Eosinophils Absolute Auto 0.18 K/uL (0.00-0.50); Eosinophils Percent Auto 2.6 % (0.0-7.0); Hematocrit 38.4 % (37.0-53.0); Hemoglobin* 12.8 gm/dL (13.5-17.5); Immature Granulocytes Abs Auto 0.01 K/uL (0.00-0.30); Lymphocytes Percent Auto 12.2 % (20-44); Mean Corpuscular HGB Conc 33 gm/dL (32-36); Mean Corpuscular Hemoglobin 29 pg (26-34); Mean Corpuscular Volume 86 fL (80-100); Monocytes Percent Auto 11.5 % (0.0-11.0); Neutrophils Percent Auto 73.3 % (42.0-72.0); Platelet Count* 160 K/uL (140-440); RDW Coefficient of Variation % 13.2 % (11.5-15.5); Red Blood Count 4.48 m/uL (4.30-5.90); White Blood Count* 6.86 K/uL (4.50-11.00)
[2021-11-03 08:28] LABS: Slide Review Reflex No
[2021-11-03 08:30] LABS: Albumin* 3.8 g/dL (3.3-5.0); Chloride* 93 mmol/L (96-114)
[2021-11-03 08:31] LABS: Potassium* 3.8 mmol/L (3.6-5.1); Sodium* 132 mmol/L (135-149)
[2021-11-03 08:33] LABS: Aspartate Amino Transferase* 48 U/L (12-35); Bilirubin Total* 2.8 mg/dL (0.1-1.5); Carbon Dioxide* 29 mmol/L (20-32); Total Protein* 6.9 g/dL (6.0-8.3)
[2021-11-03 08:34] LABS: Alanine Aminotransferase* 47 U/L (4-50); Alkaline Phosphatase* 267 U/L (40-150); Blood Urea Nitrogen* 19 mg/dL (7-30); Calcium* 8.8 mg/dL (8.4-10.6); Glucose* 95 mg/dL (60-115)
[2021-11-03] MEDS: polyethylene glycoL 3350 17 GM PACK PO ×4 (08:39→20:15)
[2021-11-03] MEDS: METOPROLOL SUCCINATE (XL) 25 MG TAB PO (08:40)
[2021-11-03] MEDS: BUSPIRONE 10 MG TABLET PO (08:40)
[2021-11-03] MEDS: allopurinoL 100 MG TABLET PO (08:40)
[2021-11-03] MEDS: AMLODIPINE 10 MG TABLET PO (08:40)
[2021-11-03] MEDS: ACETAMINOPHEN 325 MG TABLET 650 MG PO (08:41)
[2021-11-03] MEDS: hydroCHLOROthiazide 25 MG TABLET PO (08:41)
[2021-11-03 08:50] LABS: Creatinine* 0.9 mg/dL (0.5-1.5); Est. Creatinine Clearance* 90.78; Estimated Glomerular Filt Rate 101 ml/min
[2021-11-03] MEDS: OMEPRAZOLE 20 MG CAPSULE DR PO (09:54)
[2021-11-03] MEDS: DULOXETINE 30 MG CAPSULE DR 120 MG PO (12:21)
[2021-11-03] MEDS: CEFEPIME HCL 2 GM in 0.9 % SODIUM CHLORIDE Mini-bag 100 ML IVPB ×2 (12:25→23:26)
--- NOTE | 2021-11-03 13:31 | PM.IMPN1 ---
Progress Note: A&P Assessment and plan (1) Post op infection: Problem details: right foot/ankle Status: Acute Assessment and Plan: Continue cefepime and vanco. Dr. Ramírez saw patient this morning and recommended no further surgery at this time. (2) Hematoma of right ankle: Status: Acute (3) Chronic pain: Status: Acute Assessment and Plan: Continue usual home medications. Oxycodone increased due to acute ankle pain on top of chronic pain. (4) Hyponatremia: Status: Acute Assessment and Plan: Stable, mild. Start 2000cc fluid restriction. (5) Abnormal LFTs: Problem details: [facility] 01/22/21 BILIRUBIN,TOTAL0.2 - 1.2 mg/dL1.0 ALK [id number] - 136 IU/L65 ALT (SGPT)8 - 45 IU/L9 AST (SGOT)2 - 40 IU/L15 NH&C 11/10/21 Total Bilirubin 2.7 H Direct Bilirubin 1.0 H AST 53 H ALT 45 Alkaline Phosphatase 263 H Status: Acute Assessment and Plan: Asymptomatic. Obtain RUQ US. Recheck in am. (6) SIDDHARTH (obstructive sleep apnea): Status: Chronic Assessment and Plan: Use home CPAP when sleeping (7) Hypertension: Status: Chronic Assessment and Plan: Continue home medications. (8) RLQ abdominal pain: Status: Acute Assessment and Plan: This is a very low abdominal pain. Unlikely related to elevated LFTs. Suspect abdominal muscle pain. Subjective Time Seen by Provider: 10:07 Date Seen: 11/03/21 Interval history: Esau told me that his right foot and ankle feels much better today, much less swollen. He tells me he takes miralax 17 g four times a day at home. His relayed to staff later that he needs something to help him sleep at night, despite being on many medications that would typically make an individual sleepy. Exam Narrative: Exam Narrative: General: No acute distress. Awake, alert, oriented x3. Pleasant. No pallor. No jaundice. Oropharynx: Clear. Mucous membranes moist. Cardiovascular: Regular rate and rhythm. No murmurs, gallops, or rubs. Respiratory: Clear to auscultation bilaterally. No wheezes or crackles. Abdomen: Bowel sounds present. Soft, nondistended, nontender. When I had Esau pick his head up off the bed, he noted pain in the RLQ wall. He was mildly tender in the contracted muscles of this area with palpation. Extremities: Right foot bandages were changed by Dr. Ramírez just before I saw this patient. Bandages are clean, dry, and intact. Max showed me 2 pictures of what his foot looked like yesterday. I lifted up the bandages to see the toes and I was also able to visualize the most distal 3rd of the right foot. There is less erythema than what were in the pictures the day before. His toes remain edematous. Const: Vital Signs, click to edit/add: Vital Signs - 24 hr 11/02/21 16:10 11/02/21 18:00 11/02/21 19:00 Temperature 102.8 F H 101.7 F H Pulse Rate [Left P ulse Oximeter] 100 Pulse Rate [Pulse Oximeter] 92 94 Respiratory Rate 24 14 20 Blood Pressure [Le ft Arm] 141/101 H Blood Pressure [Le ft Upper Arm] 114/61 105/55 L Pulse Oximetry 97 95 99 Oxygen Delivery Me thod Room Air Nasal Cannula Oxygen Flow Rate 2 11/02/21 19:00 11/02/21 22:00 11/02/21 23:00 Temperature 100.6 F H Pulse Rate [Left P ulse Oximeter] 100 Pulse Rate [Pulse Oximeter] Respiratory Rate 18 Blood Pressure [Le ft Arm] Blood Pressure [Le ft Upper Arm] Pulse Oximetry Oxygen Delivery Me thod Nasal Cannula Oxygen Flow Rate 2 11/02/21 23:00 11/03/21 03:00 11/03/21 07:25 Temperature 101.4 F H 98.2 F 98.1 F Pulse Rate [Left P ulse Oximeter] 90 75 84 Pulse Rate [Pulse Oximeter] Respiratory Rate 20 20 20 Blood Pressure [Le ft Arm] 129/68 121/75 119/72 Blood Pressure [Le ft Upper Arm] Pulse Oximetry 91 95 95 Oxygen Delivery Me thod Room Air Room Air Room Air Oxygen Flow Rate 2 11/03/21 07:25 11/03/21 11:00 Temperature 98.0 F Pulse Rate [Left P ulse Oximeter] 84 83 Pulse Rate [Pulse Oximeter] Respiratory Rate 20 20 Blood Pressure [Le ft Arm] 121/71 Blood Pressure [Le ft Upper Arm] Pulse Oximetry 97 Oxygen Delivery Me thod Room Air Oxygen Flow Rate Documenting provider has reviewed patient's vital signs: yes Labs Labs: Laboratory Results - last 24 hr 11/02/21 11/02/21 11/02/21 14:30 16:59 16:59 WBC 7.59 RBC 4.26 L Hgb 12.2 L Hct 36.9 L MCV 87 MCH 29 MCHC 33 RDW Coeff of Soniya 13.3 Plt Count 144 Neut % (Auto) 79.8 H Lymph % (Auto) 7.0 L [place] % (Auto) 10.4 Eos % (Auto) 2.2 Baso % (Auto) 0.5 Neut # (Auto) 6.10 Lymph # (Auto) 0.50 L [place] # (Auto) 0.80 Eos # (Auto) 0.17 Baso # (Auto) 0.04 Abs Immat Gran (auto) 0.01 Sodium 129 L Potassium 4.4 Chloride 89 L Carbon Dioxide 32 BUN 23 Creatinine 1.0 Estimated Creat Clear 81.70 Estimated GFR 89 Glucose 105 Lactate Calcium 8.3 L Total Bilirubin Direct Bilirubin AST ALT Alkaline Phosphatase C-Reactive Protein 27.7 H Total Protein Albumin SARS-CoV-2 (PCR) Negative SARS-CoV-2 11/02/21 11/02/21 11/03/21 16:59 16:59 08:00 WBC 6.86 RBC 4.48 Hgb 12.8 L Hct 38.4 MCV 86 MCH 29 MCHC 33 RDW Coeff of Soniya 13.2 Plt Count 160 Neut % (Auto) 73.3 H Lymph % (Auto) 12.2 L [place] % (Auto) 11.5 H Eos % (Auto) 2.6 Baso % (Auto) 0.3 Neut # (Auto) 5.00 Lymph # (Auto) 0.80 L [place] # (Auto) 0.80 Eos # (Auto) 0.18 Baso # (Auto) 0.02 Abs Immat Gran (auto) 0.01 Sodium Potassium Chloride Carbon Dioxide BUN Creatinine Estimated Creat Clear Estimated GFR Glucose Lactate 1.0 Calcium Total Bilirubin 2.7 H Direct Bilirubin 1.0 H AST 53 H ALT 45 Alkaline Phosphatase 263 H C-Reactive Protein Total Protein 6.7 Albumin 3.7 SARS-CoV-2 (PCR) 11/03/21 08:00 WBC RBC Hgb Hct MCV MCH MCHC RDW Coeff of Soniya Plt Count Neut % (Auto) Lymph % (Auto) [place] % (Auto) Eos % (Auto) Baso % (Auto) Neut # (Auto) Lymph # (Auto) [place] # (Auto) Eos # (Auto) Baso # (Auto) Abs Immat Gran (auto) Sodium 132 L Potassium 3.8 Chloride 93 L Carbon Dioxide 29 BUN 19 Creatinine 0.9 Estimated Creat Clear 90.78 Estimated GFR 101 Glucose 95 Lactate Calcium 8.8 Total Bilirubin 2.8 H Direct Bilirubin AST 48 H ALT 47 Alkaline Phosphatase 267 H C-Reactive Protein Total Protein 6.9 Albumin 3.8 SARS-CoV-2 (PCR)
[2021-11-03] MEDS: ACETAMINOPHEN 500 MG TABLET PO ×2 (14:24→20:12)
[2021-11-03] MEDS: NYSTATIN POWDER 1 APPLIC TOPICAL (14:24)
[2021-11-03] MEDS: PREGABALIN 100 MG CAPSULE 200 MG PO ×2 (14:25→20:20)
--- NOTE | 2021-11-03 14:47 | PC.NURSE ---
end of shift. Pt was not happy this am but that has improved as the day progressed. he is now pleasant. he tried to take a nap but was unsuccessful at that task. he has general joint pain. and lower back and left lower leg pain. he is getting po Tylenol and 10 of oxycodone 10 mg q 4 hours he did not sleep well last night, he has meds for sleep this HS. he is NWB right leg, 1 assist to w/c. we are using the w/c to the BR. SL in the right a/c. new SL 20 G was placed in the left FA. he is eating drinking and voiding. he is on a 2000 cc FR. he had a small hard BM. he takes meds with no problems. Dr. Ramírez did the dressing change this am. he is getting cefepime and vanco for IV antibotics. his washed him up. he is not a fall risk. he uses a Cpap for sleep. he has chronic back pain and has 2 nerve stimulator in his back. he got a new bed with a trapezze.
--- NOTE | 2021-11-03 17:43 | PC.NURSE ---
Shift Summary 15-19: Patient pleasant and cooperative, some anxiety related to right ankle swelling, given teachings on ice use and elevation, refusing ice at this time. Small amount of blood seen on kerlix, not seeping through to STEVE wraps. Pain 5/10, controlled with rest and PRN medication. Vitals WNL. Tolerating regular diet.
[2021-11-03] MEDS: hydrOXYzine pamoate 25 MG CAPSULE 50 MG PO (20:12)
[2021-11-03] MEDS: MONTELUKAST 10 MG TABLET PO (20:13)
[2021-11-03] MEDS: BUSPIRONE 10 MG TABLET 15 MG PO (20:14)
[2021-11-03] MEDS: CETIRIZINE HCL 10 MG TABLET PO (20:16)
[2021-11-03 21:22] LABS: C Reactive Protein* 29.9 mg/dL (0.5-1.0)
[2021-11-04 03:00] VITALS: BP 116/71; PULSE 82; RESP 18; TEMP 36.8; O2SAT 96
--- NOTE | 2021-11-04 05:50 | W.PM.PODPN ---
Podiatry-PN: Subj Subjective Date Seen: 11/04/21 Interval history: Patient seen bedside this a.m.. He states that he still struggles to sleep in the hospital. Overall he is feeling better about the right ankle is having less pain. He feels he can move his toes better. Progress Note: A&P Assessment and plan (1) Hematoma of right ankle: Status: Acute (2) Post op infection: Problem details: right foot/ankle Status: Acute Plan Currently wound cultures are pending. Continue with IV vanco and cefepime until sensitivities available. Plan for return to [facility] now that swelling is improved. Plan for discharge home on oral antibiotics once sensitivities known. Exam Narrative: Exam Narrative: Right foot exam. The erythema and edema are significantly improved from yesterday. There is still lingering erythema and mild serosanguineous drainage from the incision. No pain to the anterior medial and medial ankle today. Tenderness with palpation near the surgical site laterally. No purulence. Const: Vital Signs, click to edit/add: Vital Signs - 24 hr 11/03/21 07:25 11/03/21 07:25 11/03/21 11:00 Temperature 98.1 F 98.0 F Pulse Rate [Left P ulse Oximeter] 84 84 83 Respiratory Rate 20 20 20 Blood Pressure [Le ft Arm] 119/72 121/71 Pulse Oximetry 95 97 Oxygen Delivery Me thod Room Air Room Air Oxygen Flow Rate 2 11/03/21 15:42 11/03/21 20:12 11/03/21 19:00 Temperature 98.3 F 98.7 F 98.7 F Pulse Rate [Left P ulse Oximeter] 78 78 Respiratory Rate 18 18 Blood Pressure [Le ft Arm] 114/73 138/90 H Pulse Oximetry 97 97 Oxygen Delivery Me thod Room Air Room Air Oxygen Flow Rate 11/03/21 23:00 11/03/21 23:00 11/04/21 03:00 Temperature 98.4 F 98.2 F Pulse Rate [Left P ulse Oximeter] 76 76 82 Respiratory Rate 18 18 18 Blood Pressure [Le ft Arm] 105/57 L 116/71 Pulse Oximetry 96 96 Oxygen Delivery Me thod Room Air Room Air Oxygen Flow Rate Documenting provider has reviewed patient's vital signs: yes Podiatry-PN: Obj Labs Labs: Laboratory Results - last 24 hr 11/03/21 11/03/21 11/03/21 08:00 08:00 08:00 WBC 6.86 RBC 4.48 Hgb 12.8 L Hct 38.4 MCV 86 MCH 29 MCHC 33 RDW Coeff of Soniya 13.2 Plt Count 160 Neut % (Auto) 73.3 H Lymph % (Auto) 12.2 L [place] % (Auto) 11.5 H Eos % (Auto) 2.6 Baso % (Auto) 0.3 Neut # (Auto) 5.00 Lymph # (Auto) 0.80 L [place] # (Auto) 0.80 Eos # (Auto) 0.18 Baso # (Auto) 0.02 Abs Immat Gran (auto) 0.01 Sodium 132 L Potassium 3.8 Chloride 93 L Carbon Dioxide 29 BUN 19 Creatinine 0.9 Estimated Creat Clear 90.78 Estimated GFR 101 Glucose 95 Calcium 8.8 Total Bilirubin 2.8 H AST 48 H ALT 47 Alkaline Phosphatase 267 H C-Reactive Protein 29.9 H Total Protein 6.9 Albumin 3.8
--- NOTE | 2021-11-04 06:19 | PC.NURSE ---
Alert and oriented x4. On room air and satting >90%. Vitals have been stable overnight. Pain managed with Oxycodone and Lyrica. Denies concerns overnight.
[2021-11-04 07:00] VITALS: BP 132/61; PULSE 61; RESP 18; TEMP 36.7; O2SAT 94
[2021-11-04 07:20] LABS: Basophils Percent Auto 0.5 % (0.0-3.0); Eosinophils Percent Auto 2.2 % (0.0-7.0); Hematocrit 35.3 % (37.0-53.0); Hemoglobin* 11.8 gm/dL (13.5-17.5); Immature Granulocytes Abs Auto 0.02 K/uL (0.00-0.30); Lymphocytes Percent Auto 10.3 % (20-44); Mean Corpuscular HGB Conc 33 gm/dL (32-36); Mean Corpuscular Hemoglobin 28 pg (26-34); Mean Corpuscular Volume 84 fL (80-100); Monocytes Percent Auto 11.7 % (0.0-11.0); Platelet Count* 195 K/uL (140-440); RDW Coefficient of Variation % 13.2 % (11.5-15.5); Red Blood Count 4.18 m/uL (4.30-5.90)
[2021-11-04 07:27] LABS: Slide Review Reflex No
[2021-11-04 07:32] LABS: White Blood Count* 6.51 K/uL (4.50-11.00)
[2021-11-04 07:34] LABS: Albumin* 3.3 g/dL (3.3-5.0); Chloride* 94 mmol/L (96-114)
[2021-11-04] MEDS: OMEPRAZOLE 20 MG CAPSULE DR PO (07:34)
[2021-11-04 07:35] LABS: Potassium* 3.7 mmol/L (3.6-5.1); Sodium* 131 mmol/L (135-149)
[2021-11-04 07:37] LABS: Creatinine* 0.8 mg/dL (0.5-1.5); Est. Creatinine Clearance* 102.13; Estimated Glomerular Filt Rate 105 ml/min
[2021-11-04 07:38] LABS: Alanine Aminotransferase* 44 U/L (4-50); Alkaline Phosphatase* 246 U/L (40-150); Aspartate Amino Transferase* 45 U/L (12-35); Blood Urea Nitrogen* 15 mg/dL (7-30); Calcium* 8.1 mg/dL (8.4-10.6); Carbon Dioxide* 29 mmol/L (20-32); Glucose* 108 mg/dL (60-115); Total Protein* 6.3 g/dL (6.0-8.3)
[2021-11-04 07:56] LABS: C Reactive Protein* 20.5 mg/dL (0.5-1.0)
[2021-11-04] MEDS: ACETAMINOPHEN 500 MG TABLET PO ×3 (08:54→20:58)
[2021-11-04] MEDS: allopurinoL 100 MG TABLET PO (08:54)
[2021-11-04] MEDS: METOPROLOL SUCCINATE (XL) 25 MG TAB PO (08:55)
[2021-11-04] MEDS: PREGABALIN 100 MG CAPSULE 200 MG PO ×4 (08:55→21:12)
[2021-11-04] MEDS: BUSPIRONE 10 MG TABLET 15 MG PO ×2 (08:56→20:59)
[2021-11-04] MEDS: hydroCHLOROthiazide 25 MG TABLET PO (08:58)
[2021-11-04] MEDS: polyethylene glycoL 3350 17 GM PACK PO (08:59)
[2021-11-04] MEDS: AMLODIPINE 5 MG TABLET PO (09:17)
[2021-11-04] MEDS: DULOXETINE 30 MG CAPSULE DR 120 MG PO (09:17)
[2021-11-04 11:00] VITALS: BP 128/69; PULSE 65; RESP 18; TEMP 36.7; O2SAT 96
[2021-11-04] MEDS: CEFEPIME HCL 2 GM in 0.9 % SODIUM CHLORIDE Mini-bag 100 ML IVPB (11:16)
[2021-11-04] MEDS: OXYCODONE 5 MG TABLET 10 MG PO ×2 (14:03→18:09)
--- NOTE | 2021-11-04 14:35 | PC.NURSE ---
NWB to R leg. PT in to see patient today for recommendations of exercises while NWB. Spouse at bedside in room. ABD US ordered for today. Pt to be NPO x8hrs prior. Pt has been NPO now since noon. afebrile, VSS.
[2021-11-04 15:00] VITALS: BP 130/70; PULSE 88; RESP 18; TEMP 36.7; O2SAT 94
[2021-11-04] MEDS: SENNOSIDES 1 TAB TABLET 3 TAB PO (15:23)
[2021-11-04] MEDS: buPROPion XL 150 MG TABLET 450 MG PO (15:23)
--- NOTE | 2021-11-04 17:45 | PM.IMPN1 ---
Progress Note: A&P Assessment and plan (1) Hematoma of right ankle: Status: Acute (2) Post op infection: Problem details: right foot/ankle Wound culture 11/02/2021 SMALL AMT. COAGULASE NEGATIVE STAPH- NO FURTHER WORKUP SMALL AMT. DIPTHEROIDS- NO FURTHER WORKUP Status: Acute Assessment and Plan: Continue cefepime and vanco. Will likely transition to oral antibiotic tomorrow for discharge home. (3) Chronic pain: Status: Acute Assessment and Plan: Continue usual home medications. Oxycodone increased upon admission due to acute ankle pain on top of chronic pain. (4) Hyponatremia: Status: Acute Assessment and Plan: Stable, mild. Continue 2000cc fluid restriction. (5) Abnormal LFTs: Problem details: [facility] 01/22/21 BILIRUBIN,TOTAL0.2 - 1.2 mg/dL1.0 ALK [id number] - 136 IU/L65 ALT (SGPT)8 - 45 IU/L9 AST (SGOT)2 - 40 IU/L15 NH&C 11/10/21 Total Bilirubin 2.7 H Direct Bilirubin 1.0 H AST 53 H ALT 45 Alkaline Phosphatase 263 H Status: Acute Assessment and Plan: Asymptomatic. Stable. Obtain RUQ US. (6) SIDDHARTH (obstructive sleep apnea): Status: Chronic Assessment and Plan: Use home CPAP when sleeping. (7) Hypertension: Status: Chronic Assessment and Plan: Continue home medications. (8) RLQ abdominal pain: Status: Acute Assessment and Plan: Suspect abdominal muscle pain. Resolved. Subjective Time Seen by Provider: 12:00 Date Seen: 11/04/21 Interval history: Toma and his , Scarlet, were in the room today. When I 1st went to see toma, it was around 8 a.m.. His was sitting in the hallway and yelled down the sol for me to stop and not go in there because he was sleeping. I told her I would come back later. I tried mid morning, but he was sleeping, a came around noon and he was awake. His was in the room with him. He told me he felt much better. The pain in his right low abdomen had resolved. He felt well rested. He denied any chest pain or shortness of breath. Exam Narrative: Exam Narrative: General: No acute distress. Awake, alert, oriented x3. No pallor. No jaundice. Oropharynx: Clear. Mucous membranes moist. Cardiovascular: Regular rate and rhythm. No murmurs, gallops, or rubs. Respiratory: Clear to auscultation bilaterally. No wheezes or crackles. Abdomen: Bowel sounds present. Soft, nondistended, nontender. Extremities: Right foot bandages are clean, dry, and intact. His toes are less edematous. Erythema remains about the same. Const: Vital Signs, click to edit/add: Vital Signs - 24 hr 11/03/21 20:12 11/03/21 19:00 11/03/21 23:00 Temperature 98.7 F 98.7 F Pulse Rate [Left P ulse Oximeter] 78 76 Respiratory Rate 18 18 Blood Pressure [Le ft Arm] 138/90 H Pulse Oximetry 97 Oxygen Delivery Me thod Room Air Oxygen Flow Rate 11/03/21 23:00 11/04/21 03:00 11/04/21 07:00 Temperature 98.4 F 98.2 F Pulse Rate [Left P ulse Oximeter] 76 82 61 Respiratory Rate 18 18 18 Blood Pressure [Le ft Arm] 105/57 L 116/71 Pulse Oximetry 96 96 Oxygen Delivery Me thod Room Air Room Air Oxygen Flow Rate 11/04/21 07:00 11/04/21 11:00 11/04/21 15:00 Temperature 98.0 F 98.0 F Pulse Rate [Left P ulse Oximeter] 61 65 88 Respiratory Rate 18 18 18 Blood Pressure [Le ft Arm] 132/61 128/69 Pulse Oximetry 94 96 Oxygen Delivery Me thod CPAP CPAP Oxygen Flow Rate 0 0 11/04/21 15:00 Temperature 98.0 F Pulse Rate [Left P ulse Oximeter] 88 Respiratory Rate 18 Blood Pressure [Le ft Arm] 130/70 Pulse Oximetry 94 Oxygen Delivery Me thod CPAP Oxygen Flow Rate 0 Documenting provider has reviewed patient's vital signs: yes Labs Labs: Laboratory Results - last 24 hr 11/03/21 11/04/21 11/04/21 08:00 06:28 06:28 WBC 6.51 RBC 4.18 L Hgb 11.8 L Hct 35.3 L MCV 84 MCH 28 MCHC 33 RDW Coeff of Soniya 13.2 Plt Count 195 Neut % (Auto) 75.0 H Lymph % (Auto) 10.3 L [place] % (Auto) 11.7 H Eos % (Auto) 2.2 Baso % (Auto) 0.5 Neut # (Auto) 4.90 Lymph # (Auto) 0.70 L [place] # (Auto) 0.80 Eos # (Auto) 0.10 Baso # (Auto) 0.00 Abs Immat Gran (auto) 0.02 Sodium 131 L Potassium 3.7 Chloride 94 L Carbon Dioxide 29 BUN 15 Creatinine 0.8 Estimated Creat Clear 102.13 Estimated GFR 105 Glucose 108 Calcium 8.1 L Total Bilirubin 2.0 H AST 45 H ALT 44 Alkaline Phosphatase 246 H C-Reactive Protein 29.9 H 20.5 H Total Protein 6.3 Albumin 3.3
[2021-11-04 19:00] VITALS: BP 106/59; PULSE 74; RESP 15; TEMP 36.9; O2SAT 94
[2021-11-04] MEDS: hydrOXYzine pamoate 25 MG CAPSULE 50 MG PO (20:59)
[2021-11-04] MEDS: CETIRIZINE HCL 10 MG TABLET PO (20:59)
[2021-11-04] MEDS: MONTELUKAST 10 MG TABLET PO (20:59)
[2021-11-04 23:00] VITALS: BP 122/75; PULSE 78; RESP 15; TEMP 37.1; O2SAT 95
[2021-11-05] MEDS: CEFEPIME HCL 2 GM in 0.9 % SODIUM CHLORIDE Mini-bag 100 ML IVPB (00:07)
[2021-11-05] MEDS: ACETAMINOPHEN 325 MG TABLET 650 MG PO (02:56)
[2021-11-05 03:00] VITALS: BP 151/96; PULSE 68; RESP 15; O2SAT 99
--- NOTE | 2021-11-05 05:13 | W.PM.PODPN ---
Podiatry-PN: Subj Subjective Date Seen: 11/05/21 Interval history: Max is seen bedside this a.m.. He states overall he is doing well. Pain is more controlled. Progress Note: A&P Assessment and plan (1) Hematoma of right ankle: Status: Acute (2) Post op infection: Problem details: right foot/ankle Wound culture 11/02/2021 SMALL AMT. COAGULASE NEGATIVE STAPH- NO FURTHER WORKUP SMALL AMT. DIPTHEROIDS- NO FURTHER WORKUP Status: Acute Plan Sterile dressing change today. Patient will need to do this on a daily basis. Return to [facility] for discharge. Plan for discharge home today. Recommend doxycycline 100 mg b.i.d. for the next 2 weeks. He will follow up with Dr. Ramírez and 1 week. Exam Narrative: Exam Narrative: Right lower extremity exam: Continued improvement of erythema and edema. Central area of the hematoma with some minor skin necrosis. Area appears stable. No continued collection of fluid lateral ankle. Incision appears to be healing well. Serosanguineous drainage reduced. Const: Vital Signs, click to edit/add: Vital Signs - 24 hr 11/04/21 07:00 11/04/21 07:00 11/04/21 11:00 Temperature 98.0 F 98.0 F Pulse Rate [Left P ulse Oximeter] 61 61 65 Respiratory Rate 18 18 18 Blood Pressure [Le ft Arm] 132/61 128/69 Pulse Oximetry 94 96 Oxygen Delivery Me thod CPAP CPAP Oxygen Flow Rate 0 0 11/04/21 15:00 11/04/21 15:00 11/04/21 19:00 Temperature 98.0 F 98.4 F Pulse Rate [Left P ulse Oximeter] 88 88 74 Respiratory Rate 18 18 15 Blood Pressure [Le ft Arm] 130/70 106/59 L Pulse Oximetry 94 94 Oxygen Delivery Me thod CPAP Room Air Oxygen Flow Rate 0 11/04/21 23:00 11/05/21 03:00 Temperature 98.8 F Pulse Rate [Left P ulse Oximeter] 78 68 Respiratory Rate 15 15 Blood Pressure [Le ft Arm] 122/75 151/96 H Pulse Oximetry 95 99 Oxygen Delivery Me thod Room Air Room Air Oxygen Flow Rate Podiatry-PN: Obj Labs Labs: Laboratory Results - last 24 hr 11/04/21 11/04/21 06:28 06:28 WBC 6.51 RBC 4.18 L Hgb 11.8 L Hct 35.3 L MCV 84 MCH 28 MCHC 33 RDW Coeff of Soniya 13.2 Plt Count 195 Neut % (Auto) 75.0 H Lymph % (Auto) 10.3 L [place] % (Auto) 11.7 H Eos % (Auto) 2.2 Baso % (Auto) 0.5 Neut # (Auto) 4.90 Lymph # (Auto) 0.70 L [place] # (Auto) 0.80 Eos # (Auto) 0.10 Baso # (Auto) 0.00 Abs Immat Gran (auto) 0.02 Sodium 131 L Potassium 3.7 Chloride 94 L Carbon Dioxide 29 BUN 15 Creatinine 0.8 Estimated Creat Clear 102.13 Estimated GFR 105 Glucose 108 Calcium 8.1 L Total Bilirubin 2.0 H AST 45 H ALT 44 Alkaline Phosphatase 246 H C-Reactive Protein 20.5 H Total Protein 6.3 Albumin 3.3
[2021-11-05] MEDS: OMEPRAZOLE 20 MG CAPSULE DR PO (06:38)
--- NOTE | 2021-11-05 07:05 | PC.NURSE ---
shift [id number] pt this shift calm and cooperative. CMS intact on R foot, slightly able wiggle toes, less than L foot. Extremity elevated on two pillows, foot of bed slightly elevated and pt verbalized decreased pain. Also managed with Tylenol, see eMAR. NPO since midnight. Scheduled liver U/S for 11/05 in the morning.
--- NOTE | 2021-11-05 07:15 | CRLHL7_ITS ---
For Patients: As a result of the Century Cures Act, medical imaging exams and procedure reports are released immediately into your electronic medical record. You may view this report before your referring provider. If you have questions, please contact your health care provider. INDICATION: elevated LFTs COMPARISON: none TECHNIQUE: Real time gonzalez scale imaging and color Doppler analysis was performed of the right upper quadrant. FINDINGS: The patient`s liver is of normal size and has uniform echogenicity. There is a normal appearance of the hepatic IVC and proximal abdominal aorta. There is no evidence of ascites. The gallbladder is of normal size and there is no evidence of intraluminal stones or sludge. The gallbladder wall measures 2 mm in thickness. The common bile duct is of normal size and measures 6 mm in diameter at the level of the wong hepatis. Fatty atrophy of visualized pancreas noted. There is no evidence of a stone or hydronephrosis within the right kidney. The right kidney measures 12.4 cm in length. IMPRESSION: Unremarkable appearance of the liver. No stigmata of cirrhosis or significant hepatic steatosis. No ascites. Gallbladder normal. Fatty pancreas. Dictated by Steven Mirza MD @ 11/05/2021 8:34:30 AM (Electronically Signed)
[2021-11-05 07:30] VITALS: BP 113/59; PULSE 63; RESP 20; TEMP 37; O2SAT 100
[2021-11-05] MEDS: SENNOSIDES 1 TAB TABLET 3 TAB PO (09:13)
[2021-11-05] MEDS: hydroCHLOROthiazide 25 MG TABLET PO (09:14)
[2021-11-05] MEDS: AMLODIPINE 5 MG TABLET PO (09:14)
[2021-11-05] MEDS: allopurinoL 100 MG TABLET PO (09:14)
[2021-11-05] MEDS: OXYCODONE 5 MG TABLET 10 MG PO ×2 (09:14→13:56)
[2021-11-05] MEDS: METOPROLOL SUCCINATE (XL) 25 MG TAB PO (09:14)
[2021-11-05] MEDS: DULOXETINE 30 MG CAPSULE DR 120 MG PO (09:15)
[2021-11-05] MEDS: buPROPion XL 150 MG TABLET 450 MG PO (09:15)
[2021-11-05] MEDS: ACETAMINOPHEN 500 MG TABLET PO ×2 (09:15→13:55)
[2021-11-05] MEDS: BUSPIRONE 10 MG TABLET 15 MG PO (09:57)
--- NOTE | 2021-11-05 11:07 | PM.DS1 ---
DS: Providers Provider Time Seen by Provider: 10:30 Date Seen: 11/05/21 Date of admission: 11/04/21 14:04 Primary care physician: Olga Hitchcock MD Admitting Clinician: Deric Camara MD Consults: 11/02/21 22:23 Consult to Physical Therapy [CONS] Routine Comment: Reason(s) for PT Consult:: Pain Any Restrictions?:: Non Wt Bearing Attending Physician on discharge: Maura Alba MD Date of Discharge: 11/05/21 DS: Diagnosis Discharge Diagnosis (1) RLQ abdominal pain: Status: Acute Problem details: Resolved. Suspect this was musculoskeletal. (2) Chronic pain: Status: Acute Problem details: Follows with Dr. Cody (3) Hematoma of right ankle: Status: Acute (4) SIDDHARTH (obstructive sleep apnea): Status: Chronic Problem details: Uses CPAP (5) Rheumatoid aortitis: Status: Chronic (6) Asthma: Status: Chronic (7) Hyponatremia: Status: Acute Problem details: 11/04/2021 Na 131 (8) Abnormal LFTs: Status: Acute Problem details: [facility] 01/22/21 BILIRUBIN,TOTAL0.2 - 1.2 mg/dL1.0 ALK [id number] - 136 IU/L65 ALT (SGPT)8 - 45 IU/L9 AST (SGOT)2 - 40 IU/L15 NH&C 11/04/21 Total Bilirubin 2.7 H Direct Bilirubin 1.0 H AST 53 H ALT 45 Alkaline Phosphatase 263 H Abd US 11/05/21 Unremarkable appearance of the liver. No stigmata of cirrhosis or significant hepatic steatosis. No ascites. Gallbladder normal. Fatty pancreas. (9) Post op infection: Status: Acute Problem details: right foot/ankle Wound culture 11/02/2021 SMALL AMT. COAGULASE NEGATIVE STAPH- NO FURTHER WORKUP SMALL AMT. DIPTHEROIDS- NO FURTHER WORKUP DS: Summary Hospital Course Hospital Course: Note to primary care provider: Please follow sodium and LFTs. Hyponatremia is likely due to combination SSRIs, chronic pain, and MiraLax overuse. If sodium continues to be low, consider cutting down on MiraLax as patient has been using this 4 times a day and this could cause hyponatremia. If LFTs remain elevated, patient will need further workup and possible referral to GI. This is a a 56-year-old male, with a history of rheumatoid arthritis for which he has been off methotrexate and DMARDs for 6 months, who underwent a subtalar fusion of the right ankle and then developed a fever with right foot pain. He had worsening symptoms for which he presented to the emergency department where his white count was normal but CRP was elevated at 27.7. Liver function tests were also mildly elevated and his sodium was 129. Started on vancomycin and cefepime and podiatry was consulted, who determined he did not need repeat surgery. Ankle cellulitis improved visibly daily and his CRP also improved. He was started in physical therapy. Of note he had some right lower quadrant abdominal pain early in his hospital stay that appeared to be musculoskeletal in origin possibly muscle overuse, which resolved completely by the next hospital day. He also has chronic pain for which he is on multiple medications including oxycodone. I have asked him to follow-up with his pain provider who prescribes oxycodone for him. He was discharged home in stable condition. He will also follow-up with his chili maker. Time Spent with Patient Time attestation: Total time spent providing and/or coordinating discharge services: Exam Narrative: Exam Narrative: General: No acute distress. Awake, alert, oriented x3. No pallor. No jaundice. Oropharynx: Clear. Mucous membranes moist. Cardiovascular: Regular rate and rhythm. No murmurs, gallops, or rubs. Respiratory: Clear to auscultation bilaterally. No wheezes or crackles. Abdomen: Bowel sounds present. Soft, nondistended, nontender. Extremities: Right foot bandages are clean, dry, and intact. His toes are less edematous. No erythema noted on the visible skin today. Const: Vital Signs, click to edit/add: Vital Signs - 24 hr 11/04/21 15:00 11/04/21 15:00 11/04/21 19:00 Temperature 98.0 F 98.4 F Pulse Rate [Left P ulse Oximeter] 88 88 74 Respiratory Rate 18 18 15 Blood Pressure [Le ft Arm] 130/70 106/59 L Pulse Oximetry 94 94 Oxygen Delivery Me thod CPAP Room Air Oxygen Flow Rate 0 11/04/21 23:00 11/05/21 03:00 Temperature 98.8 F Pulse Rate [Left P ulse Oximeter] 78 68 Respiratory Rate 15 15 Blood Pressure [Le ft Arm] 122/75 151/96 H Pulse Oximetry 95 99 Oxygen Delivery Me thod Room Air Room Air Oxygen Flow Rate Documenting provider has reviewed patient's vital signs: yes DS: Data Data Completed and Pending Completed studies during hospitalization: Ordering Physician: Vivian Ham MD Date of Service: 11/02/21 Procedure(s): XR ankle RT min 3V Accession Number(s): [id number] cc: Vivian Ham MD; Olga Hitchcock M.D.~ For Patients: As a result of the Cures Act, medical imaging exams and procedure reports are released immediately into your electronic medical record. You may view this report before your referring provider. If you have questions, please contact your health care provider. Indication: Postop infection. Technique: Three views of the right ankle. Comparison: Fluoroscopic images of the right foot dated 10/28/2021, right ankle radiographs dated 11/01/2020. Findings/Impression: Two talocalcaneal screws are present, no definite evidence of hardware loosening. Significant circumferential soft tissue swelling about the ankle, with moderate-sized ankle joint effusion. Dictated by Oscar Pedro MD @ 11/02/2021 6:04:17 PM (Electronically Signed) 11/02/2021 EKG: Normal sinus rhythm, heart rate 98 beats per minute, cannot rule out anterior infarct, age undetermined. Ordering Physician: Maura Alba MD Date of Service: 11/05/21 Procedure(s): US abdomen limited Accession Number(s): [id number] cc: Maura Alba MD; Olga Hitchcock M.D.~ For Patients: As a result of the Cures Act, medical imaging exams and procedure reports are released immediately into your electronic medical record. You may view this report before your referring provider. If you have questions, please contact your health care provider. INDICATION: elevated LFTs COMPARISON: none TECHNIQUE: Real time gonzalez scale imaging and color Doppler analysis was performed of the right upper quadrant. FINDINGS: The patient`s liver is of normal size and has uniform echogenicity. There is a normal appearance of the hepatic IVC and proximal abdominal aorta. There is no evidence of ascites. The gallbladder is of normal size and there is no evidence of intraluminal stones or sludge. The gallbladder wall measures 2 mm in thickness. The common bile duct is of normal size and measures 6 mm in diameter at the level of the wong hepatis. Fatty atrophy of visualized pancreas noted. There is no evidence of a stone or hydronephrosis within the right kidney. The right kidney measures 12.4 cm in length. IMPRESSION: Unremarkable appearance of the liver. No stigmata of cirrhosis or significant hepatic steatosis. No ascites. Gallbladder normal. Fatty pancreas. Dictated by Steven Mirza MD @ 11/05/2021 8:34:30 AM (Electronically Signed) Labs on day of discharge: Preliminary micro results at discharge 11/02/21 14:20 Wound Culture - Preliminary Ankle Right 11/02/21 20:20 Wound Culture - Preliminary Ankle Right 11/02/21 16:59 Blood Culture - Preliminary Blood NO GROWTH AFTER 48 HOURS 11/02/21 17:10 Blood Culture - Preliminary Blood NO GROWTH AFTER 48 HOURS Discharge Plan Discharge Disposition: Home, Self-Care Date of Admission: 11/04/21 14:04 Attending Provider on Discharge: Maura Alba Consulting Providers: Jonny Ramírez Primary Care Provider: Olga Hitchcock Condition: Improved Anticipated Discharge Date/Time: 11/05/21 12:16 Discharge Medications: New doxycycline hyclate 100 mg Capsule 100 mg PO BID Qty: 28 0RF Continued allopurinol 100 mg tablet 100 mg PO DAILY Label Comments: TAKE ONE TABLET BY MOUTH ONE TIME DAILY amlodipine 5 mg tablet 5 mg PO DAILY bupropion HCl 150 mg tablet extended release 24 hr 450 mg PO DAILY Label Comments: TAKE THREE TABLETS BY MOUTH DAILY buspirone 10 mg tablet 15 mg PO BID Label Comments: take 1.5 tablets by mouth twice daily. hydrochlorothiazide 25 mg tablet 25 mg PO DAILY Label Comments: TAKE ONE TABLET BY MOUTH ONE TIME DAILY metoclopramide HCl 5 mg tablet 5 mg PO Q6H PRN Label Comments: TAKE ONE TABLET BY MOUTH EVERY SIX HOURS NEEDED metoprolol succinate 25 mg tablet extended release 24 hr 25 mg PO DAILY Label Comments: TAKE ONE TABLET BY MOUTH ONE TIME DAILY nystatin [Nyamyc] 100,000 unit/gram powder 1 applic TOPICAL TID PRN Label Comments: Apply 1 Strip topically to affected area(s) 3 times daily. olopatadine 0.1 % drops 1 drp ophthalmic (eye) BID PRN Label Comments: INSTILL ONE DROP INTO EACH EYE TWICE DAILY omeprazole 20 mg capsule,delayed release(DR/EC) 20 mg PO DAILY Label Comments: TAKE ONE CAPSULE BY MOUTH ONE TIME DAILY BEFORE A MEAL. oxycodone 5 mg tablet 5 mg PO Q4H PRN Label Comments: TAKE ONE OR TWO TABLETS BY MOUTH EVERY FOUR HOURS NEEDED FOR PAIN pregabalin 200 mg capsule 200 mg PO TID Label Comments: TAKE ONE CAPSULE BY MOUTH THREE TIMES DAILY sennosides [Olga-zee] 8.6 mg tablet 25.8 mg PO DAILY Label Comments: TAKE ONE TABLET BY MOUTH TWICE DAILY cetirizine [24Hour Allergy] 10 mg tablet 10 mg PO HS diclofenac sodium [Voltaren Arthritis Pain] 1 % gel 2 g topical QID PRN Rx Instructions: apply to single elbow, wrist or hand; for hand includes palm/fingers/back of hand acetaminophen 500 mg capsule 500 mg PO TID polyethylene glycol 3350 [Miralax] 17 gram/dose powder 17 g PO QID albuterol 90 mcg/actuation aerosol 180 mcg inhalation Q4H PRN Rx Instructions: 2 PUFFS inhaled PRN; albuterol sulfate 2.5 mg /3 mL (0.083 %) solution for nebulization 2.5 mg inhalation Q4H PRN ipratropium-albuterol 0.5 mg-3 mg(2.5 mg base)/3 mL solution for nebulization 3 ml inhalation Q6H PRN duloxetine [Cymbalta] 60 mg capsule,delayed release(DR/EC) 120 mg PO DAILY hydroxyzine pamoate 25 mg capsule 50 mg PO HS montelukast [Singulair] 10 mg tablet 10 mg PO HS Discharge Orders: Discharge Order (Routine); Ordered 11/05/21 Ordered By: Maura Alba Patient Education: Cellulitis (ED) Activity Restrictions/Additional Instructions: Sterile dressing change on a daily basis. Return to [facility] for discharge. Activity Level: No Weight Bearing Discharge Diet: Regular Follow Up Appointments: Rubén Cody [Other] - 11/20/21 8:30 am Jonny Ramírez DPM [Staff Physician] - 11/12/21 3:30 pm Olga Hitchcock MD [Primary Care Provider] - (Patient can call and schedule an appointment as needed.) Forms: [facility] Info Instructions
[2021-11-05] MEDS: OXYCODONE 5 MG TABLET PO (11:10)
[2021-11-05] MEDS: DOXYCYCLINE HYCLATE 100 MG CAPSULE PO (11:27)
--- NOTE | 2021-11-05 15:26 | PC.NURSE ---
Please see eMar for medications given to this patient on day shift. Scarlet supportive and concerned at bedside. Eval by Dr. Ramírez who changed dressing to right ankle. Eval by Dr. Alba and myself. Pt and verbalized understanding of d/c diagnosis, home meds, new Rx for Doxycycline PO, pain management plan f/up appts and sx to report urgently. Pt verbalized understanding of his weight bearing status. New RX obtained for bariatric BSC and Front wheeled walker. Supplies for a few dressing changes sent with patient, along with 2 active ice. Pain meds given just prior to discharge via w/c at 1405 to own home with Scarlet as transportation.
== END 2021-11-05 14:05 | disposition home or self-care (01) | DRG 920 ==
LOC: ED 18:16 → MEDSURG 18:45
PROVIDERS: Family Medicine; Admitting Provider Internal Medicine; Emergency Provider Emergency Medicine; PCP Family Medicine; Visit Provider Internal Medicine
DX: L76.32 Postprocedural hematoma of skin and subcutaneous tissue following other procedure (principal); E87.1 Hypo-osmolality and hyponatremia; L03.115 Cellulitis of right lower limb; I96 Gangrene, not elsewhere classified; Z68.43 Body mass index [BMI] 50.0-59.9, adult; T81.49XA Infection following a procedure, other surgical site, initial encounter; R10.31 Right lower quadrant pain; T43.225A Adverse effect of selective serotonin reuptake inhibitors, initial encounter; T47.4X5A Adverse effect of other laxatives, initial encounter; E66.01 Morbid (severe) obesity due to excess calories; G89.29 Other chronic pain; G47.33 Obstructive sleep apnea (adult) (pediatric); J45.909 Unspecified asthma, uncomplicated; R74.01 Elevation of levels of liver transaminase levels; M06.9 Rheumatoid arthritis, unspecified; I10 Essential (primary) hypertension; K21.9 Gastro-esophageal reflux disease without esophagitis; M10.9 Gout, unspecified; F32.A Depression, unspecified
CPT/HCPCS: 36415; 51702; 51798; 73610; 76705; 80048; 80053; 80076; 83605; 85025; 86140; 87040; 87070; 87635; 93005; 97162; 97530; 99284; 99285; A9270; G0378; J0692; J2270; J2405; J3370; J7030; J7120